=== PATIENT | female | born 1975 | race American Indian/Alaskan Native ===

== ENCOUNTER 2018-07-13 14:54 | Emergency (ER) | payer BC ==
--- NOTE | 2018-07-13 15:42 | Emergency Department Report ---
Blank Doc - Documentation Documentation: This is a 43-year-old female that presets with hemorrhoid pain and bleeding. Denies any blood in stool. Stated is the hemorrhoid that has some bleeding. This initial assessment/diagnostic orders/clinical plan/treatment(s) is/are subject to change based on patient's health status, clinical progression and re- assessment by fellow clinical providers in the ED. Further treatment and workup at subsequent clinical providers discretion. Patient/guardians urged not to elope from the ED as their condition may be serious if not clinically assessed and managed. Initial orders include: 1- Patient sent to [facility] for further evaluation and treatment
[2018-07-13 20:04] LABS: Hematocrit 39.8 % (30.3-42.9); Hemoglobin 13.5 gm/dl (10.1-14.3)
[2018-07-13] MEDS ORDERED: PROCTOFOAM-HC PR ONE (20:07)
--- NOTE | 2018-07-13 20:32 | Emergency Department Report ---
ED General Adult HPI - General Chief complaint: GI Bleed Stated complaint: BLEEDING HEMORRHOIDS Time Seen by Provider: 07/13/18 15:41 Source: patient Mode of arrival: Ambulatory Limitations: No Limitations - History of Present Illness Initial comments: Pt presents with rectal bleeding that began 4 days ago but worsened over the last two days. The patient states she saw her PCP three days ago and was diagnosed with a rectal hemorrhoid. She states she has been using sitz baths, preparation H cream and suppositories. She states that initially when she wiped she just saw a small amount of blood. She states over the last two days she has noticed an increased amount of bright red blood from the rectum and has been using sanitary pads. She denies any abd pain, melena, or N/V. She has not been using any stool softeners. The patient states her father had colon CA, she had a colonscopy in 2016 which was normal and was advised to be seen again in 5 years. The patient has an appointment with her GI doctor in [place] tomorrow (07/14/18) at 2 PM. Severity scale (0 -10): 10 - Related Data Previous Rx's Medication Instructions Recorded Last Taken Type Docusate Sodium [Colace] 100 mg PO BID PRN #30 capsule 07/13/18 Unknown Rx Hydrocortisone 2.5% [Proctosol-Hc] 28.35 gm LA QID #1 tube 07/13/18 Unknown Rx Lidocaine [Lidocaine GEL] 10 gm TP Q4HR #60 gel..gram. 07/13/18 Unknown Rx Phenylephrine HCl [Hemorrhoidal 1 suppositor RC QID PRN #20 07/13/18 Unknown Rx Suppository] supp.rect Allergies Allergy/AdvReac Type Severity Reaction Status Date / Time aspirin Allergy Angioedema Verified 07/13/18 14:57 latex Allergy Hives Verified 07/13/18 14:57 ED Review of Systems ROS: Stated complaint: BLEEDING HEMORRHOIDS Other details as noted in HPI Comment: All other systems reviewed and negative ED Past Medical Hx - Surgical History Additional Surgical History: tubal ligation, - Social History Smoking Status: Never Smoker Substance Use Type: None - Medications Home Medications: Home Medications Medication Instructions Recorded Confirmed Last Taken Type Docusate Sodium [Colace] 100 mg PO BID PRN #30 capsule 07/13/18 Unknown Rx Hydrocortisone 2.5% [Proctosol-Hc] 28.35 gm LA QID #1 tube 07/13/18 Unknown Rx Lidocaine [Lidocaine GEL] 10 gm TP Q4HR #60 gel..gram. 07/13/18 Unknown Rx Phenylephrine HCl [Hemorrhoidal 1 suppositor RC QID PRN #20 07/13/18 Unknown Rx Suppository] supp.rect ED Physical Exam - General Limitations: No Limitations General appearance: alert, in no apparent distress - Head Head exam: Present: atraumatic, normocephalic - Eye Eye exam: Present: normal appearance - ENT ENT exam: Present: mucous membranes moist - Respiratory Respiratory exam: Present: normal lung sounds bilaterally. Absent: respiratory distress, wheezes, rales, rhonchi, stridor, chest wall tenderness, accessory muscle use, decreased breath sounds, prolonged expiratory - Cardiovascular Cardiovascular Exam: Present: regular rate, normal rhythm, normal heart sounds. Absent: systolic murmur, diastolic murmur, rubs, gallop - GI/Abdominal GI/Abdominal exam: Present: soft, normal bowel sounds. Absent: distended, tenderness, guarding, rebound, rigid - Rectal Rectal exam: Present: other ([employer] student present during examination, pt has hemorroid present at the 9 oclock position that appears non thrombosed, there is bright red blood present surrounding the hemorrhoid, no significant heavy bleeding, no internal hemorrhoids on examination, no stool in the rectal vault) - Neurological Exam Neurological exam: Present: alert, oriented X3 - Psychiatric Psychiatric exam: Present: normal affect, normal mood - Skin Skin exam: Present: warm, dry, intact ED Course Vital Signs 07/13/18 07/13/18 07/13/18 15:43 21:02 21:10 Temperature 98.7 F 98.4 F Pulse Rate 76 56 L 57 L Respiratory 18 20 17 Rate Blood Pressure 114/69 Blood Pressure 103/44 [Right] O2 Sat by Pulse 98 100 97 Oximetry ED Medical Decision Making - Lab Data Result diagrams: 07/13/18 19:45 Lab Results 07/13/18 Range/Units 19:45 Hgb 13.5 (10.1-14.3) gm/dl Hct 39.8 (30.3-42.9) % Vital Signs 07/13/18 07/13/18 07/13/18 15:43 21:02 21:10 Temperature 98.7 F 98.4 F Pulse Rate 76 56 L 57 L Respiratory 18 20 17 Rate Blood Pressure 114/69 Blood Pressure 103/44 [Right] O2 Sat by Pulse 98 100 97 Oximetry - Medical Decision Making Pt presents with rectal bleeding that began 4 days ago but worsened over the last two days. The patient states she saw her PCP three days ago and was diagnosed with a rectal hemorrhoid. She states she has been using sitz baths, preparation H cream and suppositories. She states that initially when she wiped she just saw a small amount of blood. She states over the last two days she has noticed an increased amount of bright red blood from the rectum and has been using sanitary pads. She denies any abd pain, melena, or N/V. She has not been using any stool softeners. The patient states her father had colon CA, she had a colonscopy in 2016 which was normal and was advised to be seen again in 5 years. The patient has an appointment with her GI doctor in [place] tomorrow (07/14/18) at 2 PM. Vitals are stable. H/H is normal at 13.51/39.8. On exam has bright red blood present from 2.5 cm sized hemorrhoid at 9 o'clock, no internal hemorrhoids on exam, no stool in the rectal vault. no abd tenderness. Will place proctofoam-hc while in the ED. Will give pt prescription for anusol, stool softener, and lidocaine jelly. Will have pt keep her appt for tomorrow 07/14/18 with her GI doctor in [place]. Advised to return to the emergency room for any new or worsening symptoms. Follow up with primary care doctor in the next 2- 3 days. - Differential Diagnosis rectal bleeding, hemorrhoid, GI bleed Critical care attestation.: If time is entered above; I have spent that time in minutes in the direct care of this critically ill patient, excluding procedure time. ED Disposition Clinical Impression: External hemorrhoid Disposition: [id number] TO HOME OR SELFCARE Is pt being admited?: No Does the pt Need Aspirin: No Condition: Stable Instructions: Hemorrhoids (ED) Additional Instructions: Please follow up with your GI doctor in [place] tomorrow 07/14/18 at 2 PM. Please see your primary care doctor in the next 2-3 days. Please use medications as prescribed. Please return to the emergency room for any new or worsening symptoms as discussed. Prescriptions: Docusate Sodium [Colace] 100 mg PO BID PRN #30 capsule PRN Reason: Constipation Phenylephrine HCl [Hemorrhoidal Suppository] 1 suppositor RC QID PRN #20 land pp.rect PRN Reason: Hemorrhoids Lidocaine [Lidocaine GEL] 10 gm TP Q4HR #60 gel..gram. Hydrocortisone 2.5% [Proctosol-Hc] 28.35 gm LA QID #1 tube Referrals: TRUDY RITCHIE DO [Primary Care Provider] - 2-3 Days Forms: Accompanied Note, Work/School Release Form(ED) Time of Disposition: 20:42 Print Language: GREENLANDIC
[2018-07-13 21:02] VITALS: BP 103/44
== END 2018-07-13 21:10 | disposition home or self-care (01) ==
LOC: ED 14:54
DX: K64.4 Residual hemorrhoidal skin tags (principal); Z98.51 Tubal ligation status; Z88.8 Allergy status to other drugs, medicaments and biological substances; Z91.040 Latex allergy status
CPT/HCPCS: 36415; 85014; 85018